=== PATIENT | female | born 1930 | race Caucasian/White ===

== ENCOUNTER 2019-10-19 12:48 | Emergency (ER) | payer MEDICARE, OTHER ==
[2019-10-19 12:56] VITALS: PULSE 79
[2019-10-19] MEDS ORDERED: Ondansetron 4 MG Tab.DIS PO ONE (13:31)
[2019-10-19] MEDS ORDERED: Ondansetron 4 MG in Sodium Chloride 0.9% 50 ML IV PRN (13:56)
[2019-10-19] MEDS ORDERED: Ondansetron 4 MG/2 ML SDV IVPUSH ONE ×2 (14:00→16:49)
[2019-10-19 14:14] LABS: ANION GAP 13.8; CHLORIDE,CL 97 mmol/L (101-111); SODIUM,NA 136 mmol/L (135-145)
[2019-10-19] MEDS ORDERED: HYDROmorphone 0.5 MG/0.5 ML Syringe IVPUSH ONE ×2 (14:14→14:23)
[2019-10-19] MEDS ORDERED: Sodium Chloride 0.9% 1,000 ML IV ONE (14:14)
[2019-10-19] MEDS ORDERED: Metoclopramide 10 MG/2 ML SDV IVPUSH ONE ×2 (14:19→16:48)
[2019-10-19] MEDS ORDERED: Iopamidol 612 MG/ML 100 ML Bottle IVPUSH ONE (14:23)
--- NOTE | 2019-10-19 14:28 | EDM.PDOC ---
<Madhavi Ochoa - Last Filed: 10/19/19 15:00> ED HPI GENERAL MEDICAL PROBLEM - General Chief Complaint: Gastrointestinal Problem Stated Complaint: VOMMITING, STOMACH PAIN Time Seen by Provider: 10/19/19 14:00 Source of Information: Reports: Patient, Family (son at bedside) History Limitations: Reports: No Limitations - History of Present Illness INITIAL COMMENTS - FREE TEXT/NARRATIVE: Patient presents to the ED by private vehicle accomanied with her son with concerns of nausea, vomiting, and abdominal distension. The patient states that she did vomit on Tuesday, felt well on , then developed abdominal pain , nausea, vomiting this morning around 11:30 this morning. The patient describes sharp pain, diffuse throughout the abdomen, which radiates laterally to her right and into her back. Her last bowel movement was Tuesday, 2019. She denies any blood in the stools. The patient's son states that the pain did seem to start in her upper abdomen. The patient has a distant history of colon, breast, and lung cancer. She is followed by Dr. Castrejon. She has underwent bowel resection in the past. The patient states that she does have her appendix as well as her gallbladder. The patient reports last oral intake: bowl of cereal and orange juice at 7:30 am. Onset: Today Duration: Getting Worse Location: Reports: Abdomen Quality: Reports: Stabbing Worsens with: Reports: None Associated Symptoms: Reports: Loss of Appetite, Nausea/Vomiting. Denies: Chest Pain, Cough, Fever/Chills Treatments INSURANCE HEALTHCARE REPRESENTATIVE: Reports: IV/IO Back Pain Score (Numeric/FACES): 8 - Related Data Allergies Allergy/AdvReac Type Severity Reaction Status Date / Time No Known Allergies Allergy Verified 10/19/19 13:37 Home Meds: Home Meds Anastrozole 1 mg PO DAILY 11/20/15 [History] Calcium Carbonate/Vitamin D3 [Calcium 600 + Vit D3 800 Tab] 1 tab PO DAILY 11/19 [History] Fluticasone Propionate [Flonase] 1 spray NASBOTH DAILY 11/20/15 [History] Levothyroxine [Synthroid] 100 mcg PO ACBREAKFAST 11/20/15 [History] Metoprolol Succinate [Toprol XL 50mg] 50 mg PO DAILY 11/20/15 [History] Multivitamin [One Daily] 1 tab PO DAILY 11/20/15 [History] [place]-3/DHA/Epa/Fish Oil [[place]-3 Fish Oil 1,200 MG Sfgl] 1,200 mg PO DAILY 02/27 [History] Ondansetron [Zofran] 4 mg PO Q8H PRN 11/20/15 [History] amLODIPine [Norvasc] 5 mg PO DAILY 11/20/15 [History] atorvaSTATin [Lipitor] 20 mg PO DAILY 11/20/15 [History] Aspirin [Halfprin] 81 mg PO DAILY 11/21/15 [History] Past Medical History HEENT History: Reports: Impaired Vision, Other (See Below) Other HEENT History: WEARS CORRECTIVE LENSES Cardiovascular History: Reports: CAD, High Cholesterol, Hypertension, Syncope Respiratory History: Reports: Other (See Below) Other Respiratory History: LUNG CA Gastrointestinal History: Reports: Diverticulosis, GERD, Hemorrhoids, Other ( See Below) Other Gastrointestinal History: CECAL CA Genitourinary History: Reports: Acute Renal Failure, Urinary Incontinence [employer]OR [employer] History: Reports: Musculoskeletal History: Reports: Osteoarthritis, Other (See Below) Other Musculoskeletal History: RESTLESS LEGS SYNDROME Neurological History: Reports: Other (See Below) Other Neuro History: RESTLESS LEG SYNDROME Psychiatric History: Reports: None Endocrine/Metabolic History: Reports: Hypothyroidism, Obesity/BMI 30+, Osteopenia, Other (See Below) Other Endocrine/Metabolic History: IMPAIRED FASTING GLUCOSE Hematologic History: Reports: Anemia Immunologic History: Reports: None Oncologic (Cancer) History: Reports: Breast, Lung, Other (See Below) Other Oncologic History: CECAL CA Dermatologic History: Reports: None - Infectious Disease History Infectious Disease History: Reports: Chicken Pox, Measles - Past Surgical History HEENT Surgical History: Reports: Cataract Surgery, Other (See Below) Cardiovascular Surgical History: Reports: Coronary Artery Stent, Other (See Below) Female Surgical History: Reports: Breast Biopsy, Mastectomy Musculoskeletal Surgical History: Reports: Hip Replacement Oncologic Surgical History: Reports: Biopsy of Breast, Mastectomy, Other (See Below) Social & Family History - Tobacco Use Smoking Status *Q: Former Smoker Years of Tobacco use: 20 Packs/Tins Daily: 0 Used Tobacco, but Quit: Yes Month/Year Tobacco Last Used: 0 - Caffeine Use Caffeine Use: Reports: Coffee, Tea - Recreational Drug Use Recreational Drug Use: No ED ROS GENERAL - Review of Systems Review Of Systems: See Below Constitutional: Denies: Fever, Chills Respiratory: Denies: Shortness of Breath, Cough Cardiovascular: Denies: Chest Pain GI/Abdominal: Reports: Abdominal Pain, Decreased Appetite, Nausea, Vomiting. Denies: Bloody Stool, Constipation, Diarrhea : Denies: Hematuria ED EXAM, GI/ABD - Physical Exam Exam: See Below Exam Limited By: No Limitations General Appearance: Alert, Mild Distress, Active Emesis Head: Atraumatic, Normocephalic Neck: Normal Inspection Respiratory/Chest: No Respiratory Distress, Lungs Clear, Normal Breath Sounds Cardiovascular: Normal Peripheral Pulses, Regular Rate, Rhythm, Systolic Murmur (left 2nd intercostal space) GI/Abdominal Exam: Distended, Tender (right upper quadrant, positive Elba), Abnormal Bowel Sounds (decreased), Other (negative McBurneys, negative Rovsings , negative Psoas). No: Rebound Back Exam: No: CVA Tenderness (L), CVA Tenderness (R) Neurological: Alert, Oriented Psychiatric: Normal Affect, Normal Mood Skin Exam: Warm, Dry, Intact Course - Vital Signs Last Recorded V/S: Last Vital Signs Temp 97.7 F 10/19/19 12:55 Pulse 79 10/19/19 12:55 Resp 18 10/19/19 12:55 BP 171/66 H 10/19/19 12:55 Pulse Ox 91 L 10/19/19 12:55 - Orders/Labs/Meds Orders: Active Orders 24 hr Category Date Time Status Abdomen Pelvis w Cont [CT] Stat Exams 10/19/19 14:23 Taken CULTURE BLOOD [BC] Stat Lab 10/19/19 13:47 Received CULTURE URINE [RM] Stat Lab 10/19/19 14:38 Received Sodium Chloride 0.9% [Normal Saline] 1,000 ml Med 10/19/19 14:14 Active IV .BOLUS Medication Orders Sodium Chloride (Normal Saline) 1,000 mls @ 999 mls/hr IV .BOLUS ONE Stop: 10/19/19 15:14 Last Admin: 10/19/19 14:20 Dose: 999 mls/hr Labs: Laboratory Tests 10/19/19 10/19/19 10/19/19 Range/Units 13:47 13:47 13:47 WBC 12.9 H (5.0-10.0) 10^3/uL RBC 4.54 (4.2-5.4) 10^6/uL Hgb 13.5 (12.0-16.0) g/dL Hct 42.4 (37.0-47.0) % MCV 93.4 (80-100) fL MCH 29.7 (27.0-34.0) pg MCHC 31.8 L (33.0-35.0) g/dL Plt Count 189 (150-450) 10^3/uL Neut % (Auto) 90.6 H (42.2-75.2) % Lymph % (Auto) 4.3 L (20.5-50.1) % Webb % (Auto) 4.6 (2-8) % Eos % (Auto) 0.3 L (1.0-3.0) % Baso % (Auto) 0.2 (0.0-1.0) % Sodium (135-145) mmol/L Potassium (3.6-5.0) mmol/L Chloride (101-111) mmol/L Carbon Dioxide (21.0-31.0) mmol/L Anion Gap BUN (7-18) mg/dL Creatinine (0.6-1.3) mg/dL Est Cr Clr Drug Dosing mL/min Estimated GFR (MDRD) BUN/Creatinine Ratio Glucose (74-105) mg/dL Lactic Acid 1.1 (0.5-2.0) mmol/L Calcium (8.4-10.2) mg/dl Total Bilirubin (0.2-1.0) mg/dL AST (10-42) IU/L ALT (10-60) IU/L Alkaline Phosphatase (42-121) IU/L Total Protein (6.7-8.2) g/dl Albumin (3.2-5.5) g/dl Globulin Albumin/Globulin Ratio Amylase 82 (28-100) U/L Lipase 116 H (22-51) U/L Urine Color (YELLOW) Urine Appearance (CLEAR) Urine pH (5.0-9.0) Ur Specific [place] (1.005-1.030) Urine Protein (NEGATIVE) Urine Glucose (UA) (NEGATIVE) Urine Ketones (NEGATIVE) Urine Occult Blood (NEGATIVE) Urine Nitrite (NEGATIVE) Urine Bilirubin (NEGATIVE) Urine Urobilinogen (0.2-1.0) mg/dL Ur Leukocyte Esterase (NEGATIVE) Urine RBC /HPF Urine WBC (0-5/HPF) /HPF Ur Epithelial Cells (NOT SEEN) /HPF Calcium Oxalate Crystal (NOT SEEN) /HPF Urine Bacteria (0-FEW/HPF) /HPF Urine Mucus (NOT SEEN) /LPF 10/19/19 10/19/19 Range/Units 13:47 14:38 WBC (5.0-10.0) 10^3/uL RBC (4.2-5.4) 10^6/uL Hgb (12.0-16.0) g/dL Hct (37.0-47.0) % MCV (80-100) fL MCH (27.0-34.0) pg MCHC (33.0-35.0) g/dL Plt Count (150-450) 10^3/uL Neut % (Auto) (42.2-75.2) % Lymph % (Auto) (20.5-50.1) % Webb % (Auto) (2-8) % Eos % (Auto) (1.0-3.0) % Baso % (Auto) (0.0-1.0) % Sodium 136 (135-145) mmol/L Potassium 3.8 (3.6-5.0) mmol/L Chloride 97 L (101-111) mmol/L Carbon Dioxide 29.0 (21.0-31.0) mmol/L Anion Gap 13.8 BUN 15 (7-18) mg/dL Creatinine 0.6 (0.6-1.3) mg/dL Est Cr Clr Drug Dosing 55.97 mL/min Estimated GFR (MDRD) > 60 BUN/Creatinine Ratio 25.00 Glucose 153 H (74-105) mg/dL Lactic Acid (0.5-2.0) mmol/L Calcium 9.4 (8.4-10.2) mg/dl Total Bilirubin 4.3 H (0.2-1.0) mg/dL AST 202 H (10-42) IU/L ALT 229 H (10-60) IU/L Alkaline Phosphatase 452 H (42-121) IU/L Total Protein 7.7 (6.7-8.2) g/dl Albumin 4.0 (3.2-5.5) g/dl Globulin 3.7 Albumin/Globulin Ratio 1.08 Amylase (28-100) U/L Lipase (22-51) U/L Urine Color Dark yellow (YELLOW) Urine Appearance Slightly cloudy (CLEAR) Urine pH 6.0 (5.0-9.0) Ur Specific [place] 1.025 (1.005-1.030) Urine Protein Negative (NEGATIVE) Urine Glucose (UA) Negative (NEGATIVE) Urine Ketones Negative (NEGATIVE) Urine Occult Blood Negative (NEGATIVE) Urine Nitrite Negative (NEGATIVE) Urine Bilirubin Small H (NEGATIVE) Urine Urobilinogen 4.0 H (0.2-1.0) mg/dL Ur Leukocyte Esterase Trace H (NEGATIVE) Urine RBC 5-10 H /HPF Urine WBC 0-5 (0-5/HPF) /HPF Ur Epithelial Cells Few (NOT SEEN) /HPF Calcium Oxalate Crystal Occasional H (NOT SEEN) /HPF Urine Bacteria Rare (0-FEW/HPF) /HPF Urine Mucus Few H (NOT SEEN) /LPF Meds: Medications Generic Name Dose Route Start Last Admin Trade Name Freq PRN Reason Stop Dose Admin Sodium Chloride 1,000 mls @ 999 mls/hr 10/19/19 14:14 10/19/19 14:20 Normal Saline IV 10/19/19 15:14 999 mls/hr .BOLUS ONE Administration Discontinued Medications Generic Name Dose Route Start Last Admin Trade Name Freq PRN Reason Stop Dose Admin Hydromorphone HCl 0.5 mg 10/19/19 14:14 10/19/19 14:22 Dilaudid IVPUSH 10/19/19 14:15 0.5 mg ONETIME ONE Administration Hydromorphone HCl 0.5 mg 10/19/19 14:23 Dilaudid IVPUSH 10/19/19 14:24 ONETIME ONE Ondansetron HCl 4 mg/ Sodium 52 mls @ 200 mls/hr 10/19/19 13:56 Chloride IV ONETIME PRN Nausea Iopamidol 100 ml 10/19/19 14:23 10/19/19 14:48 Isovue-300 (61%) IVPUSH 10/19/19 14:24 75 ml ONETIME ONE Administration Metoclopramide HCl 5 mg 10/19/19 14:19 10/19/19 14:25 Reglan IVPUSH 10/19/19 14:20 5 mg ONETIME ONE Administration Ondansetron HCl 4 mg 10/19/19 13:31 10/19/19 13:33 Zofran Odt PO 10/19/19 13:32 4 mg ONETIME ONE Administration Ondansetron HCl 4 mg 10/19/19 14:00 10/19/19 14:00 Zofran IVPUSH 10/19/19 14:01 4 mg ONETIME ONE Administration - Re-Assessments/Exams Free Text/Narrative Re-Assessment/Exam: 10/19/19 15:02 One call placed to [facility]. Patient's CT shows enlarged gallbladder, stones. Labs reveal elevated LFTs, elevated white count. Dr. Gomez accepted patient as transfer, direct admit. Plan for surgical consultation. Departure - Departure Time of Disposition: 15:09 Disposition: DC/Tfer to [facility] 02 Condition: Undetermined Clinical Impression: Cholelithiasis and acute cholecystitis with obstruction - Discharge Information *PRESCRIPTION DRUG MONITORING PROGRAM REVIEWED*: Not Applicable *COPY OF PRESCRIPTION DRUG MONITORING REPORT IN PATIENT VIVIEN: Not Applicable Forms: ED Department Discharge, Interfacility Transfer EMTALA Sepsis Event Note - Evaluation Sepsis Screening Result: No Definite Risk - Focused Exam Vital Signs: Vital Signs Temp Pulse Resp BP Pulse Ox 10/19/19 12:55 97.7 F 79 18 171/66 H 91 L Date Exam was Performed: 10/19/19 Time Exam was Performed: 15:00 - My Orders Last 24 Hours: My Active Orders 10/19/19 14:14 Sodium Chloride 0.9% [Normal Saline] 1,000 ml IV .BOLUS 10/19/19 14:23 Abdomen Pelvis w Cont [CT] Stat 10/19/19 14:38 CULTURE URINE [RM] Stat - Assessment/Plan Last 24 Hours: My Active Orders 10/19/19 14:14 Sodium Chloride 0.9% [Normal Saline] 1,000 ml IV .BOLUS 10/19/19 14:23 Abdomen Pelvis w Cont [CT] Stat 10/19/19 14:38 CULTURE URINE [RM] Stat <Marco Brizuela - Last Filed: 10/19/19 15:16> Social & Family History - Living Situation & Occupation Living situation: Reports: Occupation: Retired Course - Radiology Interpretation Free Text/Narrative:: CT Abd/Pelvis: distended gallbladder with thickened wall and visible stones, see Rad. report. - Re-Assessments/Exams Free Text/Narrative Re-Assessment/Exam: 10/19/19 15:14 I personally performed or re-performed the physical examination and medical decision making. I have verified all student documentation or findings, including history, physical exam and/or medical decision making. Departure - Departure Condition: Fair, Undetermined Sepsis Event Note - Focused Exam Date Exam was Performed: 10/19/19 Time Exam was Performed: 15:13
--- NOTE | 2019-10-19 15:41 | CT ---
EXAMINATION: Abdomen Pelvis w Cont SEX: Female AGE: 89 years CLINICAL HISTORY: 89-year-old 139 pound female with history of breast, colon and lung cancer who presents now with upper abdominal pain, abnormally elevated LFT and serum total bilirubin 4.4. Scan technique: Volume acquisition of data from the lower chest, abdomen and pelvis obtained without oral contrast but during/after intravenous infusion 75 cc nonionic Isovue contrast (2.5 cc/s via injector) while patient was lying supine on the Siemens multi slice scanner [place], [place]. All data archived in the PACS system for storage, reformatting axial/sagittal/coronal planes and study. Interpretation: 1. Left mastectomy. Total orthopedic hip replacement on the right. 2. Densely calcified "cast" normal caliber aortoiliac vessels. Large heart. Coronary artery calcifications. 3. Asymmetric dense pneumonic like consolidation (aspiration? Bronchiectasis?) posterior segment, LLL. 4. Osteoporosis. Exaggerated lumbar lordosis. No pathologic skeletal lesion, lumbar fracture or dislocation. 5. *Diseased distended gallbladder RUQ with associated evidence abnormal dilatation intra and extrahepatic biliary ducts. Note: There appears to be calcification lodged in the distal CBD at the ampulla of Vater. Neoplasm possible. 6. Diverticula sigmoid colon without associated signs of diverticulitis i.e. no inflammatory "dirty" peritoneal fat, signs of mechanical bowel obstruction, ascites or free intraperitoneal air. (Surgical clips RLQ). 7. Simple 3 cm diameter cyst lower pole right kidney and smaller 1 cm diameter cysts upper pole both kidneys. No stones. CONCLUSION: Choledocholithiasis obstruction (cholelithiasis and probable choledocholithiasis). No sign of primary or metastatic intraperitoneal malignancy. Left lower lobe pneumonia. Sigmoid diverticulosis. Mastectomy.
[2019-10-19 16:15] VITALS: BP 156/58
== END 2019-10-19 17:06 ==
LOC: DL.ED 12:48
DX: K80.01 Calculus of gallbladder with acute cholecystitis with obstruction (principal); I10 Essential (primary) hypertension; I25.10 Atherosclerotic heart disease of native coronary artery without angina pectoris; E03.9 Hypothyroidism, unspecified; E66.9 Obesity, unspecified; Z79.82 Long term (current) use of aspirin; Z79.899 Other long term (current) drug therapy; Z98.49 Cataract extraction status, unspecified eye; Z85.3 Personal history of malignant neoplasm of breast; Z85.118 Personal history of other malignant neoplasm of bronchus and lung; Z85.038 Personal history of other malignant neoplasm of large intestine
CPT/HCPCS: 36415; 74177; 80053; 81001; 82150; 83605; 83690; 85025; 87040; 87086; 87088; 87186; 96361; 96374; 96375; 96376; 99284; 99285-25; A9270-GY; J1170; J2405; J2765; J7030; Q9967

== ENCOUNTER 2020-11-15 07:32 | Emergency (ER) | payer MEDICARE, OTHER ==
[2020-11-15 07:53] VITALS: BP 184/59; PULSE 72
--- NOTE | 2020-11-15 08:01 | EDM.PDOC ---
<Matthew Ellington C - Last Filed: 11/15/20 09:11> ED HPI GENERAL MEDICAL PROBLEM - General Chief Complaint: Lower Extremity Injury/Pain Stated Complaint: RIGHT HIP PAIN/UNABLE TO WALK "NO ACCIDENT" Time Seen by Provider: 11/15/20 07:54 Source of Information: Reports: Patient History Limitations: Reports: No Limitations - History of Present Illness INITIAL COMMENTS - FREE TEXT/NARRATIVE: 89 y/o F c/o R hip pain that came on gradually begining last night. Pt states she was at her assisted living center and got up from playing cards to walk to her room when she noticed slight pain in her R hip. She states she went to bed and got up about 3 am to use the restroom and noticed the pain was more severe and she began to have difficulty walking and putting weight on her R leg. Pt went back to bed and awoke this morning with severe pain in the R hip with ambulation she states she cannot bear any weight on her R leg. At the preset the pain is 1/10 with no movement and a 7/10 with movement. The pain is sharp and radiates down the R leg if the pt attempts ambulation. Denies recent trauma, falls, fever, cough, chills, drugs, etoh, abd pn, pelvic pn, cp, ctls pn, flank pn. Hx of colon cancer, breast cancer both of which are in remission. Currently has lung cancer with her last radiation dose in August. Onset: Gradual Duration: Hour(s): Location: Reports: Lower Extremity, Right Quality: Reports: Sharp Severity: Moderate Improves with: Reports: Rest Worsens with: Reports: Movement Associated Symptoms: Reports: No Other Symptoms Right Hip Pain Score (Numeric/FACES): 5 - Related Data Allergies Allergy/AdvReac Type Severity Reaction Status Date / Time No Known Allergies Allergy Verified 11/15/20 07:44 Home Meds: Home Meds Anastrozole 1 mg PO DAILY 11/20/15 [History] Calcium Carbonate/Vitamin D3 [Calcium 600 + Vit D3 800 Tab] 1 tab PO DAILY 11/20/15 [History] Fluticasone Propionate [Flonase] 1 spray NASBOTH DAILY 11/20/15 [History] Levothyroxine [Synthroid] 125 mcg PO ACBREAKFAST 11/20/15 [History] Metoprolol Succinate [Toprol XL 50mg] 50 mg PO DAILY 11/20/15 [History] Multivitamin [One Daily] 1 tab PO DAILY 11/20/15 [History] [place]-3/DHA/Epa/Fish Oil [[place]-3 Fish Oil 1,200 MG Sfgl] 1,200 mg PO DAILY 11/20/15 [History] Ondansetron [Zofran] 4 mg PO Q8H PRN 11/20/15 [History] amLODIPine [Norvasc] 5 mg PO DAILY 11/20/15 [History] atorvaSTATin [Lipitor] 40 mg PO DAILY 11/20/15 [History] Aspirin [Halfprin] 81 mg PO DAILY 11/21/15 [History] Alendronate Sodium [Fosamax] 70 mg PO WEEKLY 11/15/20 [History] Past Medical History HEENT History: Reports: Impaired Vision, Other (See Below) Other HEENT History: WEARS CORRECTIVE LENSES Cardiovascular History: Reports: CAD, High Cholesterol, Hypertension, Syncope Respiratory History: Reports: Other (See Below) Other Respiratory History: LUNG CA Gastrointestinal History: Reports: Diverticulosis, GERD, Hemorrhoids, Other (See Below) Other Gastrointestinal History: CECAL CA Genitourinary History: Reports: Acute Renal Failure, Urinary Incontinence 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: Musculoskeletal History: Reports: Osteoarthritis, Other (See Below) Other Musculoskeletal History: RESTLESS LEGS SYNDROME Neurological History: Reports: Other (See Below) Other Neuro History: RESTLESS LEG SYNDROME Psychiatric History: Reports: None Endocrine/Metabolic History: Reports: Hypothyroidism, Obesity/BMI 30+, Osteopenia, Other (See Below) Other Endocrine/Metabolic History: IMPAIRED FASTING GLUCOSE Hematologic History: Reports: Anemia Immunologic History: Reports: None Oncologic (Cancer) History: Reports: Breast, Lung, Other (See Below) Other Oncologic History: CECAL CA Dermatologic History: Reports: None - Infectious Disease History Infectious Disease History: Reports: Chicken Pox, Measles - Past Surgical History HEENT Surgical History: Reports: Cataract Surgery, Other (See Below) Other HEENT Surgeries/Procedures: BILAT CATARACT EXTRACTION WITH INTRAOCULAR LENSE PLACMENT Cardiovascular Surgical History: Reports: Coronary Artery Stent, Other (See Below) Other Cardiovascular Surgeries/Procedures: ANGIOGRAPHY WITHOUT LEFT HEART Respiratory Surgical History: Reports: None GI Surgical History: Reports: Colon Female Surgical History: Reports: Breast Biopsy, Mastectomy Endocrine Surgical History: Reports: None Neurological Surgical History: Reports: None Musculoskeletal Surgical History: Reports: Hip Replacement Oncologic Surgical History: Reports: Biopsy of Breast, Mastectomy, Other (See Below) Other Oncologic Surgeries/Procedures: COLON RESECTION Social & Family History - Tobacco Use Tobacco Use Status *Q: Former Tobacco User Used Tobacco, but Quit: Yes Month/Year Tobacco Last Used: unknown - Caffeine Use Caffeine Use: Reports: Coffee - Recreational Drug Use Recreational Drug Use: No - Living Situation & Occupation Living situation: Reports: Occupation: Retired Review of Systems - Review of Systems Review Of Systems: Comprehensive ROS is negative, except as noted in HPI. ED EXAM, GENERAL - Physical Exam Exam: See Below Exam Limited By: No Limitations General Appearance: Alert, WD/WN, No Apparent Distress Eye Exam: Bilateral Eye: PERRL Throat/Mouth: Normal Inspection, Normal Lips, Normal Teeth, Normal Gums, Normal Oropharynx, Normal Voice, No Airway Compromise Head: Atraumatic, Normocephalic Neck: Normal Inspection, Supple, Non-Tender, Full Range of Motion Respiratory/Chest: No Respiratory Distress, Lungs Clear, Normal Breath Sounds, No Accessory Muscle Use, Chest Non-Tender Cardiovascular: Normal Peripheral Pulses, Regular Rate, Rhythm, No Edema, No Gallop, No JVD, No Rub GI/Abdominal: Normal Bowel Sounds, Soft, Non-Tender (Female) Exam: Deferred Rectal (Female) Exam: Deferred Back Exam: Normal Inspection Extremities: No Pedal Edema, Other (Pain with palpation of R posterior hip, no obvious crepitus or deformity, no inwar or outward rotation of the hip) Departure - Departure Time of Disposition: 09:11 Disposition: Home, Self-Care 01 Condition: Fair Clinical Impression: Radiculopathy Qualifiers: Spinal region: lumbar Qualified Code(s): M54.16 - Radiculopathy, lumbar region - Discharge Information *PRESCRIPTION DRUG MONITORING PROGRAM REVIEWED*: Not Applicable *COPY OF PRESCRIPTION DRUG MONITORING REPORT IN PATIENT VIVIEN: Not Applicable Instructions: Radicular Pain Forms: ED Department Discharge Additional Instructions: RX: Decadron Follow up in clinic on Tuesday for further evaluation of your hip pain. You can use tylenol or ibuprofen for pain as needed. If any new symptoms or concerns develop contact your primary care facility or return to the ER. Sepsis Event Note (ED) - Evaluation Sepsis Screening Result: No Definite Risk <Marco Brizuela - Last Filed: 11/15/20 09:16> Course - Vital Signs Last Recorded V/S: Last Vital Signs Temp 98.1 F 11/15/20 07:44 Pulse 72 11/15/20 07:44 Resp 18 11/15/20 07:44 BP 184/59 H 11/15/20 07:44 Pulse Ox 97 11/15/20 07:44 - Radiology Interpretation Free Text/Narrative:: [facility] [place] [facility] Final Radiology Report Call: [phone] assistance Online chat: [email or web address] Name: LANDEN BULLARD Age: 89Years F Date: 11/15/2020 SSN: -- : [id number] Study: CT PELVIS WO CONT Requesting Physician: Matthew Ellington Images: [phone] Addl Studies: Provided Clinical History: Hip pain Contrast: Without Contrast Medium: Contrast Amount: Contrast Method: Page 1 of 2 PROCEDURE INFORMATION: Exam: CT Pelvis Without Contrast; Skeletal Exam date and time: 11/15/2020 8:08 AM Age: 89 years old Clinical indication: Hip pain; Right hip TECHNIQUE: Imaging protocol: Computed tomography images of the pelvis without contrast. Exam focused on the skeletal structures. Radiation optimization: All CT scans at this facility use at least one of these dose optimization techniques: automated exposure control; mA and/or kV adjustment per patient size (includes targeted exams where dose is matched to clinical indication); or iterative reconstruction. COMPARISON: CT Abdomen Pelvis w Cont 10/19/2019 2:37 PM FINDINGS: Stomach and bowel: Status post right hemicolectomy. Diverticulosis of the colon. No evidence of acute diverticulitis. Vasculature: Severe atherosclerotic disease. Bilobed infrarenal abdominal aortic aneurysm measuring 2.6 cm in diameter. Bones/joints: Status post right hip arthroplasty. Soft tissues: Extensive beam hardening artifact from the hardware limits evaluation of adjacent soft tissues. Multilevel degenerative disease and facet arthropathy. 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 IMPRESSION: No acute fractures. LANDEN BULLARD | Final Radiology Report CONFIDENTIALITY STATEMENT This report is intended only for use by the referring physician, and only in accordance with law. If you received this in error, call [phone]. Page 2 of 2 Thank you for allowing us to participate in the care of your patient. Dictated and Authenticated by: Nate Macdonald MD 11/15/2020 8:45 AM Central Time ([place] & [place]) - Re-Assessments/Exams Free Text/Narrative Re-Assessment/Exam: 11/15/20 I personally performed or re-performed the physical examination and medical decision making. I have verified all student documentation or findings, including history, physical exam and/or medical decision making. Sepsis Event Note (ED) - Focused Exam Vital Signs: Vital Signs Temp Pulse Resp BP Pulse Ox 11/15/20 07:44 98.1 F 72 18 184/59 H 97
--- NOTE | 2020-11-15 08:45 | CT ---
PROCEDURE INFORMATION: Exam: CT Pelvis Without Contrast; Skeletal Exam date and time: 11/15/2020 8:08 AM Age: 89 years old Clinical indication: Hip pain; Right hip TECHNIQUE: Imaging protocol: Computed tomography images of the pelvis without contrast. Exam focused on the skeletal structures. Radiation optimization: All CT scans at this facility use at least one of these dose optimization techniques: automated exposure control; mA and/or kV adjustment per patient size (includes targeted exams where dose is matched to clinical indication); or iterative reconstruction. COMPARISON: CT Abdomen Pelvis w Cont 10/19/2019 2:37 PM FINDINGS: Stomach and bowel: Status post right hemicolectomy. Diverticulosis of the colon. No evidence of acute diverticulitis. Vasculature: Severe atherosclerotic disease. Bilobed infrarenal abdominal aortic aneurysm measuring 2.6 cm in diameter. Bones/joints: Status post right hip arthroplasty. Soft tissues: Extensive beam hardening artifact from the hardware limits evaluation of adjacent soft tissues. Multilevel degenerative disease and facet arthropathy. 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 IMPRESSION: No acute fractures.
== END 2020-11-15 09:19 | disposition home or self-care (01) ==
LOC: DL.ED 07:32
DX: M54.16 Radiculopathy, lumbar region (principal); I25.10 Atherosclerotic heart disease of native coronary artery without angina pectoris; E78.00 Pure hypercholesterolemia, unspecified; I10 Essential (primary) hypertension; M19.90 Unspecified osteoarthritis, unspecified site; E03.9 Hypothyroidism, unspecified; E66.9 Obesity, unspecified; Z68.24 Body mass index [BMI] 24.0-24.9, adult; Z79.82 Long term (current) use of aspirin; Z79.899 Other long term (current) drug therapy; Z87.891 Personal history of nicotine dependence
CPT/HCPCS: 72192; 99283; 99283-25